=== PATIENT | male | born 1975 | race Caucasian/White ===

== ENCOUNTER 2016-05-10 01:53 | Emergency (ER) | payer OTHER ==
[2016-05-10] MEDS ORDERED: ceFAZolin 1,000 MG in DEXTROSE/WATER 1 50ML.BAG IVPB STA (02:08)
[2016-05-10] MEDS ORDERED: DIPH,PERTUS(ACELL)TETVAC-LF 0.5 ML VIAL IM ONE (02:08)
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
[2016-05-10 02:37] LABS: ABG PCO2 35 mmHg (35-45); ABG PH 7.43 (7.35-7.45)
[2016-05-10 02:38] LABS: ABG Base Excess -0.8 mmol/L; ABG HCO3 23 mmol/L (21-25); ABG PO2 >400 mmHg (83-108); ABG TCO2 24 mmol/L (19-24)
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
== END 2016-05-10 02:39 | disposition other institution (70) ==
LOC: EDBD → EC 01:53
DX: S01.90XA Unspecified open wound of unspecified part of head, initial encounter (principal); Y24.9XXA Unspecified firearm discharge, undetermined intent, initial encounter
CPT/HCPCS: 36600; 94002; 82805; 71010; 31500; 99291; 96365; J0690